=== PATIENT | female | born 1980 | race Hispanic/Latino ===

== ENCOUNTER 2017-12-02 20:09 | Emergency (ER) | payer SELFPAY ==
[~2017-12-02] VITALS: Ht 162.6 cm; Wt 82.6 kg
[2017-12-02] MEDS ORDERED: ALBUTEROL SULF 0.083% NEB SOLN 3 ML NEB NEB STA (20:14)
[2017-12-02] MEDS ORDERED: IPRATROPIUM BROMIDE 0.02% 2.5 ML NEB NEB STA (20:14)
--- NOTE | 2017-12-02 20:51 | Diagnostic Imaging Report ---
Frontal and lateral views of the chest. HISTORY: Shortness of breath, cough, inhaled fumes COMPARISON: None available. DISCUSSION: Overlying artifacts. Lungs: Subtle prominence of the central peribronchial interstitial markings. No evidence of a consolidative pneumonia or pulmonary alveolar edema. Pleura: No pleural effusion or pneumothorax. Heart and mediastinum: The cardiomediastinal silhouette appears unremarkable. Bones: No acute osseous lesion. IMPRESSION: Findings which could be seen in the setting of a subtle nonspecific bronchitis. Signed by: Dr. George Thomas D.O., M.M.M. on 12/02/2017 8:47 PM
[2017-12-02 22:53] VITALS: BP 116/69
== END 2017-12-02 21:55 | disposition home or self-care (01) ==
LOC: ER 20:09
DX: T59.891A Toxic effect of other specified gases, fumes and vapors, accidental (unintentional), initial encounter (principal); Y92.89 Other specified places as the place of occurrence of the external cause
CPT/HCPCS: 71046; 99283

== ENCOUNTER 2019-06-12 13:23 | Inpatient (IN) | payer OTHER ==
[~2019-06-12] VITALS: Ht 162.6 cm; Wt 82.6 kg
--- OUTSIDE RECORDS SUMMARY | 2019-06-12 13:25 | XMS REPORT ---
Author Author [facility] Address Unknown Phone Unavailable Care Team Providers Care Teacher Of The Deaf/Hard Of Hearing Name Role Phone Sanjay ARANDA Unavailable Unavailable Payers Payer Name Policy Type Policy Number Effective Date Expiration Date Problems This patient has no known problems. Allergies, Adverse Reactions, Alerts Allergy Name Allergy Type Status Severity Reaction(s) Onset Date Inactive Date Treating Clinician Comments fluconazole DA Active HI 2015-06-12 00:00:00 Medications This patient has no known medications. Results Test Description Test Time Test Comments Text Results Atomic Results Result Comments - US ABDOMEN COMPLETE 2019-03-14 10:00:00 Name: ROSANA FIGUEROA [facility] Jean-Paul Malhotra : 1980 Age/S: 38 / F [address] [place] [address] Unit #: [id number] Loc: [place] [address] Phys: Erin Hilliard MD Acct: [id number] Dis Date: Status: REG CLI PHONE #: [phone] Exam Date: 03/14/2019 09 FAX #: [phone] Reason: RT FLANK PAIN EXAMS: CPT CODE: [id number] US ABDOMEN COMPLETE [id number] EXAMINATION: Abdominal Ultrasound EXAM DATE: March 14, 2019. CLINICAL HISTORY:RT FLANK PAIN. COMPARISON: July 29, 2010 Realtime sonographic evaluation of the abdomen was performed. The liver is within normal limits in size and sonographic appearance without evidence of mass or intrahepatic biliary ductal dilatation. The liver measures 14.1 cm. The spleen is unremarkable.. The spleen measures 8.3 cm. The gallbladder is within normal limits in appearance. There is no evidence of cholelithiasis, gallbladder wall thickening, or pericholecystic fluid. The common bile duct is within normal limits measuring 0.3 cm in AP diameter. Visualized portions of the pancreas are unremarkable. The right kidney measures 6.2 cm.The left kidney measures 12.7 cm. The right kidney appears atrophic with no evidence of mass lesions, hydronephrosis are renal calculi. This finding does not appear significantly changed compared to prior exam. The left kidney appears normal in size, shape, and position. No free fluid is present. The aorta and IVC are unremarkable in the visualized portions. IMPRESSION: Atrophy of the right kidney not significantly changed compared to the prior exam. at 1000 Reported and signed by: Nallely Lin M.D. CC: Erin Hilliard MD Technologist: Jeny Meyer RDMS (AB) (OB) Trnscb Date/Time: 03/14/2019 (1000) [email or web address] Orig Print D/T: S: 03/14/2019 (1003) Probe: PAGE 1 Signed Report CHEST 2 VIEWS [place] [address] Patient Name: ROSANA FIGUEROA MR #: [id number] : 1980 Age/Sex: 36/F Req #: [id number] Adm Physician: Ordered by: HAI WOMACK MOUNTER HAND Report #: [id number] Location: ER Room/Bed: Procedure: [id number] DX/CHEST 2 VIEWS Exam Date: Exam Time: REPORT STATUS: Signed Frontal and lateral views of the chest. HISTORY: Shortness of breath, cough, inhaled fumes COMPARISON: None available. DISCUSSION: Overlying artifacts. Lungs: Subtle prominence of the central peribronchial interstitial markings. No evidence of a consolidative pneumonia or pulmonary alveolar edema. Pleura: No pleural effusion or pneumothorax. Heart and mediastinum: The cardiomediastinal silhouette appears unremarkable. Bones: No acute osseous lesion. IMPRESSION: Findings which could be seen in the setting of a subtle nonspecific bronchitis. Signed by: Dr. George Thomas D.O., M.M.M. on 12/02/2017 8:47 PM Dictated By: GEORGE THOMAS DO 46 Transcribed By: VIKKI on 12/02/172046 COPY TO: HAI WOMACK NP
[2019-06-12] MEDS ORDERED: KETOROLAC TROMETHAMINE 30 MG/ML VIAL IM NR (13:30)
[2019-06-12] MEDS ORDERED: ONDANSETRON HCL INJ 2MG/ML 2ML 2 MG/ML VIAL IM NR (13:30)
[2019-06-12] MEDS ORDERED: SODIUM CHLORIDE 0.9% 1000ML 1,000 ML IV STA (13:30)
--- NOTE | 2019-06-12 13:44 | NUR ---
PATIENT TO ROOM 1
[2019-06-12] MEDS ORDERED: ONDANSETRON HCL INJ 2MG/ML 2ML 2 MG/ML VIAL IV STA (13:51)
[2019-06-12 14:00] LABS: BASOPHILS % 0.4 % (0.0-1.0); EOSINOPHILS # (AUTO) 0.1 (0.0-0.4); HEMATOCRIT 37.2 % (34.2-44.1); HEMOGLOBIN 12.6 g/dL (12.0-16.0); LYMPHOCYTES % 20.2 % (18.0-39.1); MEAN CORPUSCULAR HEMOGLOBIN 30.9 pg (28-32); MEAN CORPUSCULAR HGB CONC 33.9 g/dL (31-35); MEAN CORPUSCULAR VOLUME 91.2 fL (81-99); MONOCYTES # (AUTO) 0.5 (0.2-0.8); MONOCYTES % 5.6 % (4.4-11.3); NEUTROPHILS % 72.5 % (38.7-80.0); PLATELET COUNT 265 x10e3/uL (140-360); RED BLOOD COUNT 4.08 x10e6/uL (3.6-5.1); RED CELL DISTRIBUTION WIDTH 13.3 % (11.7-14.4)
[2019-06-12] MEDS ORDERED: KETOROLAC TROMETHAMINE 30 MG/ML VIAL IV ONE (14:00)
[2019-06-12 14:01] LABS: BILIRUBIN,URINE SMALL (NEGATIVE); CLARITY,URINE SL CLOUDY (CLEAR); KETONES,URINE NEGATIVE (NEGATIVE); LEUKOCYTE ESTERASE ,URINE LARGE (NEGATIVE); NITRITE,URINE POSITIVE (NEGATIVE)
[2019-06-12 14:04] LABS: PROTEIN,URINE DIPSTICK 3+ (NEGATIVE)
[2019-06-12 14:05] LABS: COLOR,URINE ORANGE (YELLOW); URINE UROBILINOGEN 8 mg/dL (0.2 - 1)
[2019-06-12 14:10] LABS: BACTERIA,URINE FEW /HPF; EPITHELIAL CELLS,URINE FEW /LPF; RBC,URINE 21-50 /HPF (0-5); WBC,URINE (MAN) 21-50 /HPF (0-5)
[2019-06-12 14:24] LABS: ALANINE AMINOTRANSFERASE 46 IU/L (0-55); ALBUMIN 3.9 g/dL (3.5-5.0); ALBUMIN/GLOBULIN RATIO 1.1 (0.8-2.0); ALKALINE PHOSPHATASE 80 IU/L (40-150); ANION GAP 13.8 mmol/L (8-16); BLOOD UREA NITROGEN 10 mg/dL (7-26); BUN/CREATININE RATIO 12 (6-25); CALCIUM 10.1 mg/dL (8.4-10.2); CARBON DIOXIDE 22 mmol/L (22-29); CHLORIDE 103 mmol/L (98-107); CREATININE, SERUM 0.81 mg/dL (0.57-1.11); EST GLOMERULAR FILTRATION RATE > 60 ML/MIN (60-); GLUCOSE 101 mg/dL (74-118); POTASSIUM 3.8 mmol/L (3.5-5.1); SODIUM 135 mmol/L (136-145)
[2019-06-12 14:49] LABS: PREGNANCY TEST, URINE NEGATIVE (NEGATIVE)
[2019-06-12] MEDS ORDERED: CEFTRIAXONE SOD 1 GM/NS 50 ML 50 ML IV ONE (15:15)
[2019-06-12] MEDS ORDERED: SODIUM CHLORIDE 0.9% 1000ML 1,000 ML IV ONE (15:30)
--- NOTE | 2019-06-12 15:44 | Diagnostic Imaging Report ---
EXAM: CT of the abdomen and pelvis WITHOUT contrast HISTORY: Kidney pain, stone protocol, right flank pain COMPARISON: CT of the abdomen and pelvis December 13, 2011 TECHNIQUE: The abdomen and pelvis were scanned utilizing a multidetector helical scanner. Coronal and sagittal reformats are available. PROTOCOL: Renal colic IV CONTRAST: None, which limits sensitivity and specificity of evaluation of the soft tissues and vascular structures. ORAL CONTRAST: None, which limits sensitivity and specificity of evaluation of the bowel. RADIATION DOSE: Total DLP: 462.41 mGy*cm Estimated effective dose: (DLP x 0.015 x size factor) Dose modulation, iterative reconstruction, and/or weight based adjustment of the mA/kV was utilized to reduce the radiation dose to as low as reasonably achievable. COMPLICATIONS: None FINDINGS: LOWER THORAX: Unremarkable. ABDOMEN/PELVIS: HEPATOBILIARY: No focal hepatic lesions. No biliary ductal dilation. The gallbladder is normal. SPLEEN: No splenomegaly. PANCREAS: No focal masses or ductal dilatation. ADRENALS: No adrenal nodules. KIDNEYS/URETERS: Right: Atrophic right kidney with probable scarring.. Left: Punctate nonobstructing calcification near the superior pole. Hydronephrosis. PELVIC ORGANS/BLADDER: The urinary bladder is predominantly decompressed, which accentuates the appearance of wall thickness. Interval increased size of the ureter with a predominant 10 cm subtle hypodensity, CT is not sensitive for differentiating a uterine fibroid from leiomyosarcoma.. PERITONEUM/RETROPERITONEUM: No free air or fluid. LYMPH NODES: No lymphadenopathy. VESSELS: Unremarkable. GI TRACT: No distention or wall thickening. The appendix is unremarkable. BONES AND SOFT TISSUES: No bony destructive lesions. No soft tissue abnormalities. IMPRESSION: 1. Punctate nonobstructing left renal stone. 2. Atrophic right kidney. 3. Presumed large uterine fibroid, given the size, advise nonemergent follow-up FLOORING PROFESSIONAL consultation. Signed by: Mervat Chavis.Joanna., M.M.M. on 06/12/2019 3:39 PM
[2019-06-12] MEDS ORDERED: MORPHINE SULFATE INJ 4 MG/ML INJ 1ML IV PRN (16:30)
--- NOTE | 2019-06-12 16:46 | NUR ---
H&P cc: flank pain HPI: 38yoF, PCP none, developed R. flank pain, with radiation to groin, and chills/sweats. Found to have UTI and pyelonephritis. PMH: Obesity, right kidney atrophy PSHX: none Allergies; see emr FH/Sh; single; no cigs meds; see mar ROS: no N/V/D/CHOWDHURY/vision changes/skin rash/chest pain/sob V/S: revd PE tired appearing anicteric ns1s2 mod bs soft right flank tender; no e/t skin dry n. 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
[2019-06-12] MEDS: ONDANSETRON HCL INJ 2MG/ML 2ML 2 MG/ML VIAL IV PRN (17:30)
[2019-06-12] MEDS: SODIUM CHLORIDE 0.9% 1000ML 1,000 ML IV SCH (18:43)
[2019-06-12] MEDS ORDERED: VALTREX500 MG PO (19:10)
[2019-06-12] MEDS ORDERED: BUPROPION XL150 MG PO (19:10)
[2019-06-12] MEDS ORDERED: NUVARING VAGIN1 EACH VG (19:10)
[2019-06-12] MEDS ORDERED: LEVOTHYROXINE75 MCG PO (19:10)
[2019-06-12] MEDS ORDERED: VYVANSE70 MG PO (19:10)
[2019-06-12] MEDS ORDERED: LORAZEPAM2 MG/1 M1 PO (19:10)
--- NOTE | 2019-06-12 21:35 | NUR ---
Patient received via stretcher from ER . Patient is AAO x 4. Patient had no complaints of pain. Respirations even and non-labored. Admission history obtained. Initial physical assessment performed. Patient oriented to room, call light and plan of care. Fall precautions implemented. Patient instructed to call for assistance when needed. Call light within reach.
[2019-06-12 21:56] VITALS: BP 124/64
[2019-06-12 22:00] VITALS: BP 124/64
--- NOTE | 2019-06-12 22:34 | NUR ---
Patient complained of a headache. Dr. Cramer notified. New order received for Tylenol 650 mg Q6H PRN.
[2019-06-12] MEDS: ACETAMINOPHEN 325 MG TAB PO PRN (23:25)
[2019-06-13] VITALS (8 sets, daily range): BP systolic 90–113; BP diastolic 54–64
[2019-06-13] MEDS: SODIUM CHLORIDE 0.9% 1000ML 1,000 ML IV SCH ×4 (02:14→23:19)
[2019-06-13] MEDS ORDERED: INFLUENZA VIRUS VAC SPLIT INJ 0.5 ML SYR IM ONE (03:00)
[2019-06-13] MEDS ORDERED: INFLUENZA VIRUS VAC SPLIT INJ 0.5 ML SYR IM SCH (03:01)
--- NOTE | 2019-06-13 04:19 | NUR ---
Flu vaccination given to patient on right Deltoid. Patient tolerated well.
[2019-06-13 05:10] LABS: BASOPHILS % 0.3 % (0.0-1.0); EOSINOPHILS # (AUTO) 0.1 (0.0-0.4); EOSINOPHILS % 1.9 % (0.0-6.0); HEMATOCRIT 31.1 % (34.2-44.1); LYMPHOCYTES # (AUTO) 2.1 (1.0-3.2); LYMPHOCYTES % 30.6 % (18.0-39.1); MEAN CORPUSCULAR HEMOGLOBIN 30.2 pg (28-32); MEAN CORPUSCULAR HGB CONC 32.2 g/dL (31-35); MONOCYTES # (AUTO) 0.6 (0.2-0.8); MONOCYTES % 8.4 % (4.4-11.3); NEUTROPHILS # (AUTO) 3.9 (2.1-6.9); NEUTROPHILS % 58.5 % (38.7-80.0); PLATELET COUNT 194 x10e3/uL (140-360); RED BLOOD COUNT 3.31 x10e6/uL (3.6-5.1); RED CELL DISTRIBUTION WIDTH 13.4 % (11.7-14.4)
[2019-06-13 05:31] LABS: ANION GAP 11.6 mmol/L (8-16); BLOOD UREA NITROGEN 10 mg/dL (7-26); BUN/CREATININE RATIO 15 (6-25); CALCIUM 8.6 mg/dL (8.4-10.2); CARBON DIOXIDE 20 mmol/L (22-29); CHLORIDE 108 mmol/L (98-107); CREATININE, SERUM 0.68 mg/dL (0.57-1.11); EST GLOMERULAR FILTRATION RATE > 60 ML/MIN (60-); GLUCOSE 101 mg/dL (74-118); POTASSIUM 3.6 mmol/L (3.5-5.1); SODIUM 136 mmol/L (136-145)
[2019-06-13 06:05] LABS: CHOL/HDL RATIO 3.3 (3.0-3.6)
--- NOTE | 2019-06-13 07:15 | NUR ---
Walking rounds done. Patient resting comfortably. Shift report given to oncoming nurse.
--- NOTE | 2019-06-13 07:32 | NUR ---
IM- progress note' O/N no events ROS: no N/V/D/CHOWDHURY/vision changes/skin rash/chest pain/sob V/S: revd PE tired appearing anicteric ns1s2 mod bs soft right flank tender; no e/t skin dry n. 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 Sourav Cramer MD, PhD.
[2019-06-13] MEDS: LISDEXAMFETAMINE DIMESYLATE 70 MG PO SCH (09:00)
[2019-06-13] MEDS ORDERED: VALACYCLOVIR HCL 500 MG TAB PO SCH (09:45)
[2019-06-13] MEDS ORDERED: LORAZEPAM INJ 2 MG/ML VIAL IV SCH (09:45)
[2019-06-13] MEDS: BUPROPION HCL 150 MG TABCR PO SCH (10:18)
[2019-06-13] MEDS: LEVOTHYROXINE SODIUM 75 MCG TAB PO SCH (10:18)
[2019-06-13] MEDS ORDERED: ATIVAN1 MG PO (10:21)
[2019-06-13] MEDS ORDERED: LORAZEPAM 1 MG TAB PO PRN (10:30)
[2019-06-13] MEDS: CEFTRIAXONE SOD 1 GM/NS 50 ML 50 ML IV SCH (10:35)
[2019-06-13] MEDS: ACETAMINOPHEN 325 MG TAB PO PRN ×3 (10:35→22:09)
[2019-06-13] MEDS ORDERED: VALACYCLOVIR HCL 500 MG TAB PO PRN (11:15)
[2019-06-13] MEDS: ONDANSETRON HCL INJ 2MG/ML 2ML 2 MG/ML VIAL IV PRN (15:52)
[2019-06-14] VITALS: BP 96/58
[2019-06-14 04:00] VITALS: BP 96/52
[2019-06-14] MEDS: CEFTRIAXONE SOD 1 GM/NS 50 ML 50 ML IV SCH (06:05)
[2019-06-14] MEDS: LEVOTHYROXINE SODIUM 75 MCG TAB PO SCH (06:06)
[2019-06-14] MEDS: ACETAMINOPHEN 325 MG TAB PO PRN (06:10)
[2019-06-14] MEDS ORDERED: KEFLEX500 MG PO (07:24)
[2019-06-14] MEDS ORDERED: SODIUM CHLORIDE 0.9% 1000ML 1,000 ML IV ONE (07:30)
[2019-06-14] MEDS: BUPROPION HCL 150 MG TABCR PO SCH (07:50)
[2019-06-14 08:00] VITALS: BP 108/59
[2019-06-14] MEDS: LISDEXAMFETAMINE DIMESYLATE 70 MG PO SCH (08:04)
[2019-06-14 08:54] VITALS: BP 108/59
--- NOTE | 2019-06-14 09:30 | NUR ---
BP 114/56
--- NOTE | 2019-06-14 09:38 | NUR ---
Discharge instructions and prescription given to the patient, she verbalized understanding. IV was removed with tip intact.
== END 2019-06-14 09:40 | disposition home or self-care (01) | DRG 872 ==
LOC: ER 13:23 → ERHOLD 16:18 → MED/SURG2 21:15
PROVIDERS: ADMIT Internal Medicine; ATTEND Internal Medicine
DX: A41.9 Sepsis, unspecified organism (principal); N10 Acute pyelonephritis; E66.9 Obesity, unspecified; Z68.31 Body mass index [BMI] 31.0-31.9, adult; N26.1 Atrophy of kidney (terminal); N20.0 Calculus of kidney; D25.9 Leiomyoma of uterus, unspecified; Z23 Encounter for immunization
CPT/HCPCS: 36415; 74176; 80048; 80053; 80061; 81001; 81025; 83036; 83605; 85025; 87040; 99284; J0696; J1885; J2270; J2405; J7030